=== PATIENT | female | born 1945 | race Caucasian/White ===

== ENCOUNTER 2023-04-17 09:58 | Outpatient (RCR) | payer MEDICARE, OTHER, SELFPAY | END 2023-04-17 23:59 | disposition home or self-care (01) | LOC: RPT 09:58 | PROVIDERS: ATTENDING PHYSICIAN Physical Medicine & Rehabilitation; FAMILY PHYSICIAN Family Medicine | DX: M47.816 Spondylosis without myelopathy or radiculopathy, lumbar region (principal); M41.50 Other secondary scoliosis, site unspecified; R26.89 Other abnormalities of gait and mobility; Z73.6 Limitation of activities due to disability | CPT/HCPCS: 97010; 97110; 97162 ==

== ENCOUNTER 2023-05-06 09:07 | Outpatient (RCR) | payer MEDICARE, OTHER, SELFPAY | END 2023-05-20 09:25 | disposition home or self-care (01) | LOC: RPT 09:07 | PROVIDERS: ATTENDING PHYSICIAN Physical Medicine & Rehabilitation; FAMILY PHYSICIAN Family Medicine | DX: M47.816 Spondylosis without myelopathy or radiculopathy, lumbar region (principal); M41.50 Other secondary scoliosis, site unspecified; Z73.6 Limitation of activities due to disability; R26.89 Other abnormalities of gait and mobility | CPT/HCPCS: 97010; 97110 ==

== ENCOUNTER 2023-05-16 14:55 | Inpatient (IN) | payer MEDICARE, OTHER, SELFPAY ==
[2023-05-16] VITALS (13 sets, daily range): BP systolic 135–193; BP diastolic 78–123; BMI 23.3; BMI 24.8
[2023-05-16 12:24] LABS: % Basophils 1.4 % (0-2); % Eosinophils 1.2 % (0-6); % Immature Granulocytes 0.2 % (0-0.5); % Lymphocytes 17.7 % (20.5-51.1); % Monocytes 5.4 % (1.7-9.3); % Neutrophils 74.1 % (42.2-75.2); Absolute Basophils 0.1 10^3/uL (0-0.2); Absolute Eosinophils 0.1 10^3/uL (0-0.7); Absolute Monocytes 0.3 10^3/uL (0.1-0.6); Absolute Neutrophils 4.4 10^3/uL (1.4-6.5); Hematocrit 47.1 % (37.0-47.0); Hemoglobin 15.2 g/dL (12.0-16.0); Mean Corp Hgb Conc. 32.3 g/dL (33.0-37.0); Mean Corpuscular Hgb 27.5 pg (27.0-31.0); Mean Corpuscular Volume 85.3 fL (81.0-99.0); Mean Platelet Volume 8.7 fL (7.4-10.4); Nucleated Red Blood Cells % 0 %; Platelet Count 405 10^3/uL (130-400); Red Blood Cell Count 5.52 10^6/uL (4.20-5.40); Red Cell Dist. Width 14.1 % (11.5-14.5); White Blood Cell Count 5.9 10^3/uL (4.8-10.8)
[2023-05-16 12:50] LABS: ALT (SGPT) 13 U/L (0-35); AST (SGOT) 24 U/L (14-36); Albumin 4.6 g/dl (3.5-5.0); Alkaline Phosphatase 121 U/L (38-126); Blood Urea Nitrogen 13 mg/dl (7-17); Calcium 9.7 mg/dl (8.4-10.2); Carbon Dioxide 22 mmol/L (22-30); Chloride 107 mmol/L (98-107); Estimated Creatinine Clearance 56 ml/min; Glucose 97 mg/dl (70-99); Potassium 3.9 mmol/L (3.5-5.1); Sodium 137 mmol/L (135-145); Total Bilirubin 1.1 mg/dl (0.2-1.3); Total Protein 7.4 g/dl (6.3-8.2); eGFR > 60.00
--- NOTE | 2023-05-16 12:51 | ED.CVA ---
History of Present Illness
General
Chief Complaint: CVA/TIA Symptoms
Source: patient and spouse
Exam Limitations: none
Time Seen by Provider: 05/16/23 12:35
Nursing documentation reviewed up to this point in time: agreed with
Onset of Stroke Symptoms
Onset of symptoms known: Yes
Date of onset of symptoms: 05/15/23
Time of onset of symptoms: 22:00
Time pt last seen normal is known: No
Travel History
Have you had any contact with someone who has COVID-19?: No
Do you have any symptoms of coronavirus? Fever > 100 degrees, chills, cough, shortness of breath, sore throat, loss of taste or smell, muscle aches, or headache?: No
History of Present Illness
History of Present Illness:
77-year-old female presents emergency department complaining of right sided blurry vision and word finding difficulty at 10 PM last night. Lasted about an hour, and has dissipated. She denies any complaints at this time. She states she was dizzy,
lightheaded.
Past History
Past History
ED Past Medical History: Other (Diverticulosis/diverticulitis )
ED Past Surgical History: None
Social History
Tobacco: Non-smoker
Alcohol: None
Personal:
Living: with family
Review of Systems
Review of Systems
Allergies reviewed?: Yes
All Other Systems: Not applicable
Constitutional: Reports no symptoms
EENT: Reports no symptoms
Respiratory: Reports no symptoms
Cardiac: Reports no symptoms
ABD/GI: Reports no symptoms
: Reports no symptoms
Musculoskeletal: Reports no symptoms
Skin: Reports no symptoms
Neurological: Reports dizzy
Endocrine: Reports no symptoms
Hematologic/Lymphatic: Reports no symptoms
Psychiatric: Reports no symptoms
Phy Exam
Physical Exam
Physical Exam:
Physical Exam
General: no apparent distress, not acutely ill
Neck: supple. no meningeal signs. normal posterior pharynx
Heart: s1/s2 regular rate and rhythm, no murmur. equal radial
pulses.
HEENT: Pupils equal round reactive to light, EOMI
Lungs: no acute respiratory distress. clear bilaterally
Abdomen: normal bowel sounds. not tender. no CVAT
Neuro: alert and oriented. no focal neurological deficits cranial nerves II through XII intact
Skin: no rash
Psychiatric: well kept. interactive and cooperative
Extremities: no edema. no calf tenderness. negative homans. good distal pulses
Scores
NIH Stroke Score
Level of Consciousness: 0 - Alert
LOC Questions: 0-Answers both correctly
LOC Commands: 0-Performs both correctly
Best Horizontal Gaze: 0-Normal
Visual Escalera: 0=Normal, no visual loss
Facial Palsy: 0=Normal, symmetrical
Motor - Right Arm: 0=No drift 10 seconds
Motor - Left Arm: 0=No drift 10 seconds
Motor - Right Le-No drift 5 seconds
Motor - Left Le-No drift 5 seconds
Limb Ataxia: 0-Absent
Sensation: 0-Normal
Best Language: 0-No aphasia
Dysarthria: 0-Normal
Extinction and Inattention: 0-No abnormality
Total Score:: 0
Course
Orders/Labs/Results
Orders:
Orders
05/16/23 12:12
Electrocardiogram (*1) Urgent
Reason for Study: Chest Pain
Cardiac Monitoring- Treatment ONCE
EKG- Treatment ONCE
IV Insert/Care/Rem.- Treatment PRN
O2 Therapy [RESP] Urgent
Titrate/Wean O2 to maintain O2 sat greater than (%): 90
Special Instructions: Maintain sats >/=90%
Pulse Ox/spot Check [RESP] Urgent
Quantity: 1
Special Instructions: ON ROOM AIR
05/16/23 12:13
Cardiovascular Evaluation Urgent
Complete Blood Count/With Diff Urgent
Comprehensive Metabolic Panel Urgent
Glycohemoglobin (HgbA1c) Urgent
Troponin I Urgent
05/16/23 12:19
Vitamin B12 Urgent
Comment: ADD ON
Vitamin D, 25-Oh Urgent
05/16/23 12:47
CT Head W/o Iv Contrast Urgent
Comment:
Reason For Exam: right sided blurry vision, word finding difficulty
05/16/23 12:49
IV Insert/Care/Rem.- Treatment PRN
05/16/23 14:15
NEUROLOGY CONSULT Routine
Consulting Provider: Anupama Navas
Was physician already notified: Yes
05/16/23 14:27
Add On- LAB Routine
Tests Added?: lipid panel, HgbA1C, B12 level, OH vit D level
05/16/23 14:28
Admit/Transfer Patient As Directed
Co-Sign Provider:
Level of Care: Inpatient admission
Assign to:: Telemetry
Physician / Group: Nika/hospitalist
Diagnosis: R eye blurriness, word finding difficulty
Reason for Telemetry: CVA/TIA
Date to Stop Telemetry: 05/19/23
Time to Stop Telemetry: 11:00
Reason for Hospitalization: R eye blurriness, word finding difficulty
Expected length of stay greater than two midnights?: Yes
ELOS- Estimated Length of Stay in days: 2
I certify the patient meets the requirements for IP care: Yes
05/16/23 14:29
Code Status As Directed
Resuscitation Status: Full Code
05/16/23 Dinner
Regular
At Your Request: Full Participation
05/16/23 17:39
Acetaminophen [Tylenol/Feverall] 650 mg RECTAL Q4HPRN PRN
Acetaminophen [Tylenol] 650 mg PO Q4HPRN PRN
Aspirin Chewable [Low Strength Aspirin] 81 mg PO DAILY
05/16/23 17:39
Case Management Consult ONCE
Case Management Consult: Discharge Planning
Comment: stroke/tia
DIETARY CONSULT Routine
Reason for Consult: stroke/TIA
Skin Diver Urgent
MR Brain Without Contrast Routine
Comment:
Reason For Exam: stroke/TIA
Recent pill cam endoscopy?: No
Activity As Directed
Activity Level: As Tolerated
NIH Stroke Scale As Directed
Directions: Per protocol
Comment: every shift and with any change in condition or mental status
Neurological Checks As Directed
Frequency: q4h
Additional Instructions:: q4h x 24h upon admission to the floor, then qshift & with any change in condition
and mental status
Patient Education As Directed
Type: Stroke education packet
Comment: provide to patient and family
Pneumatic Compression Sleeves As Directed
Type: Knee high
Swallow Screening CVA/TIA ONLY As Directed
Comment: NPO until swallowing screening completed
If patient FAILS swallow screening:: NPO, Speech Therapy consult, Aspiration Precautions
If patient PASSES swallow screening, diet:: Regular
Above diet order entered?: Yes- passed screening
Vital Signs As Directed
Frequency: Per unit guidelines
Ot Eval And Treat Routine
Pt Eval And Treat Routine
Activity Level: As Tolerated
Speech Therapy Eval & Treat Routine
DX Deep Vein Thrombosis Video Routine
05/17/23 06:00
Cardiovascular Evaluation IN AM
05/19/23 11:00
DC Protocol for Telemetry ONCE
Abnormal Lab Results
05/16/23 05/16/23
12:13 12:19
RBC 5.52 H 10^6/uL
(4.20-5.40)
Hct 47.1 H %
(37.0-47.0)
MCHC 32.3 L g/dL
(33.0-37.0)
Plt Count 405 H 10^3/uL
(130-400)
Absolute Lymphs (auto) 1.0 L 10^3/uL
(1.2-3.4)
Lymphocytes % 17.7 L %
(20.5-51.1)
Total Cholesterol 259 H mg/dl
(50-199)
Vitamin B12 227 L pg/ml
(239-931)
Vitamin D 25-Hydroxy 17.7 L ng/mL
(30-80)
05/16/23 12:13
05/16/23 12:13
Vital Signs
Initial and Last Documented VS:
Initial Vital Signs
Temp Pulse Resp BP Pulse Ox
98.2 F 91 16 193/123 100
05/16/23 11:48 05/16/23 11:48 05/16/23 11:48 05/16/23 11:48 05/16/23 11:48
Last Documented Vital Signs
Temp Pulse Resp BP Pulse Ox
98.1 F 88 14 146/78 97
05/16/23 19:08 05/16/23 19:08 05/16/23 19:08 05/16/23 19:08 05/16/23 19:08
MDM/Problems Addressed
Differential Diagnosis Includes:
CVA, intracranial hemorrhage
MDM/Problems Addressed:
77-year-old female with acute CVA, symptoms over 24 hours old and resolved. No indication for tPA or IAT. Admit to hospitalist.
Chronic conditions affecting care: Other (Raynaud's)
*Radiology
Radiology exam reviewed: radiology read reviewed (ct head shows 2 subcentimeter low-density area in left frontal white matter)
*Pulse Oximetry
Patient hypoxic: no
*EKG
Interpreted by ED Provider?: Yes
EKG Intrepretation Date: 05/16/23
EKG Intrepretation Time: 12:19
Interpretation: normal
Comparison EKG: no changes
Heart Rate: 73
Rate: normal
Rhythm: sinus
[place]: normal axis
Interval: normal interval
QRS Pattern: normal QRS
Ischemia: no ischemia
*Quality Control Tester Interpretation
Rate: normal
Interpretation: normal
Heart Rate: 75
Rhythm: sinus
*Critical Care Note
Total Time (30-74mins, 75-104mins- exclusive of procedures): Not Applicable
Data Reviewed
Prescriptions/Medications Considered But Not Given:
TNK not indicated
Patient Management
Social determinants of health affecting care: Living situation
Discussion with other providers: Hospitalist and Regulator Assembler (Neurology)
Escalation/DeEscalation of care consider admission/obs:
Admit indicated
ED Attending Note
-
Portions of this chart may have been created with voice recognition software.� Occasional wrong word or��sound alike� substitutions may have occurred due to the inherent limitations of voice recognition software.
Discharge Plan
Departure
Patient Disposition: Admit
Date of Disposition: 05/16/23
Time of Disposition: 14:05
Admit to: Telemetry
Presentation/result/management discussed w/ accepting MD/DO: Hospitalist
Patient with high blood pressure during this ER visit?: Yes
Condition: Good
Discharge Problem:
Acute cerebrovascular accident (CVA)
Interventions
Interventions:
*Risk Screen - Suicide Last Done: 05/16/23 11:51
*General Assessment Last Done: 05/16/23 12:55
*Neglect/Abuse Screening Last Done: 05/16/23 11:51
ED- Fall Risk Assessment Last Done: 05/16/23 12:39
*ED COVID-19 Vaccine History Last Done: 05/16/23 11:51
*Nursing Disposition Last Done: 05/16/23 17:55
ED- Pulmonary Assessment Last Done: 05/16/23 12:39
ED- Neurological Assessment Last Done: 05/16/23 12:40
ED- Cardiac Assessment Last Done: 05/16/23 12:39
ED Swallowing Screen Last Done: 05/16/23 12:11
Discharge Date and Time
Discharge Date/Time: 05/16/23 17:55
[2023-05-16 12:57] LABS: Troponin I < 0.012 ng/ml
--- NOTE | 2023-05-16 14:12 | HPS.HSE ---
Family Physician
-
Family Physician: Morgan Luu
Chief Complaint
-
R eye blurry vision, word finding difficulty
History of Present Illness
HPI: 77-year-old female PMH Diverticulosis, R breast ca s/p mastectomy, p/w right eye blurry vision and word finding difficulty that started at 10 PM the night prior and lasted for about an hour. She has no complaint currently, except for mild
headache.
She denies to N/V, fever/chills, CP/SOB, weakness/paresthesia.
Her CT head obtained in the ER noted a 2 cm low-density area in the left frontal white matter.
Medical History
Past Medical History
Past Medical History: Reports Other
Additional Past Medical History:
Diverticulosis
R breast ca s/p mastectomy
Past Surgical History: Reports Other
Additional Past Surgical History:
R breast ca s/p mastectomy
BL hip replacement
R knee replacement
Social History
Tobacco: Non-smoker
Alcohol: Occasional
Personal:
Living: With Family
Family History
Family History: Not pertinent
Allergies / Home Medications
Allergies reflects when Allergies were last updated in [employer].
Home Medications with original date entered in [employer]
Allergy/Medication List:
Allergies
Allergy/AdvReac Type Severity Reaction Status Date / Time
No Known Allergies Allergy Verified 05/16/23 11:51
Home Medications
cholecalciferol (vitamin D3) 25 mcg (1,000 unit) tablet (Vitamin D3) 25 mcg PO DAILY 05/16/23
cyanocobalamin (vitamin B-12) 1,000 mcg tablet 1,000 mcg PO DAILY 05/16/23
potassium 99 mg tablet 99 mg PO DAILY 05/16/23
Review of Systems
-
Neurological: Reports See HPI and Headache; Denies Weakness or Numbness
Physical Exam
Vital Signs
Vital Signs
Temp Pulse Resp BP Pulse Ox
36.8 C 71 19 154/85 99
05/16/23 11:48 05/16/23 14:00 05/16/23 14:00 05/16/23 14:00 05/16/23 14:00
Physical Exam
General: Well Developed, Well Nourished, No Apparent Distress, Comfortable and Conversant; No Slurred Speech
HEENT: NormoCephalic, Moist mucous membranes, Atraumatic, Nose Appears Normal and Ears Appear Normal
Respiratory: Clear and Non Labored Respirations; No Accessory Resp Muscle Use
Cardiac: S1/S2 and Regular Rhythm; No Murmur or Rub
GI: Soft, Non Tender, Non Distended and Normal Bowel Sounds; No Organomegaly
Rectal: Deferred by Provider
Musculoskeletal: No Clubbing, No Cyanosis and No Edema
Skin: No Rash
Neuro: Awake, Alert, Oriented, No Motor Deficits, Nonfocal/grossly intact and No Sensory Deficits; No Slurred Speech or Facial Droop
Psych: Calm and Intact Judgment/Insight
Laboratory Results
-
05/16/23 12:13
05/16/23 12:13
Laboratory Results
Total Bilirubin 1.1 mg/dl (0.2-1.3) 05/16/23 12:13
AST 24 U/L (14-36) 05/16/23 12:13
ALT 13 U/L (0-35) 05/16/23 12:13
Alkaline Phosphatase 121 U/L (38-126) 05/16/23 12:13
Troponin I < 0.012 ng/ml 05/16/23 12:13
Data Reviewed
-
CT Scan: Report Reviewed by me, Discussed with Patient and Discussed with Family
Lab Data: Labs Reviewed by me
Impression/Plan
-
HPI: 77-year-old female PMH Diverticulosis, R breast ca s/p mastectomy, p/w right eye blurry vision and word finding difficulty that started at 10 PM the night prior and lasted for about an hour. She has no complaint currently, except for mild
headache.
She denies to N/V, fever/chills, CP/SOB, weakness/paresthesia.
Her CT head obtained in the ER noted a 2 cm low-density area in the left frontal white matter.
A/P:
# right sided blurry vision and word finding difficulty, resolved. Admit for TIA/stroke work up
CT head noted 2 cm low-density area in the left frontal white matter.
Check MRI brain
Check lipid panel, A1C
Start ASA, defer Plavix to Neuro
Neuro CS
# ?vit B12 deficiency
# ? vit D deficiency
check B12 and Oh vit D level
She is on these supplements at home
# distant history of R breast ca s/p mastectomy
# Diverticulosis, R breast ca s/p mastectomy
DVT ppx: SCD
FC
--- NOTE | 2023-05-16 14:24 | PHANOTE ---
medrec note patient explain that her md was calling in today 05/16/23 vitamin d2 50,000iu weekly but patient has not started this yet or picked it up
[2023-05-16 14:54] LABS: HDL Cholesterol 96 mg/dl; LDL Cholesterol, Calculated 134 mg/dl; Total Cholesterol 259 mg/dl (50-199); Triglyceride 149 mg/dl (10-149); Very Low Density Lipoprotein 29 mg/dl (0-30)
[2023-05-16 15:10] LABS: Vitamin D, 25-OH*** 17.7 ng/mL (30-80)
[2023-05-16 15:43] LABS: Vitamin B12 227 pg/ml (239-931)
--- NOTE | 2023-05-16 16:33 | CON.NEURO ---
Consultation
Order
Date of Consultation: 05/16/23
Reason for Consult: stroke
HPI:The patient presents with a chief complaint of sudden difficulty hearing, understanding, and finding words a couple of days ago, accompanied by poor vision in the right eye and a crooked and dark image on the laptop screen last night. The
patient also reports feeling weak and dizzy in the morning. The patient is concerned about the possibility of a stroke or dementia.
The patient has a history of a mild headache on the left side for the past couple of days. The patient denies chest pain, heart racing, palpitations, belly pain, diarrhea, constipation, tingling, numbness in the feet, weakness on one side or sensory
deficits.
ER VS: 193/123, 91, afebrile
EKG: NSR
Labs: Potassium�5.52, platelets�405, normal WBCs, LDL�134, total cholesterol�259, vitamin B12�227, vit D 17.7
CT head-2 cm low-density area in the left frontal white matter
PMH: Breast cancer, diverticulosis Vitamin D, vitamin B-12 deficiency, OA
PSH: BL cataract surgery; Bilateral mastectomy; BL HIMA, R TKA,
SH: , works for the [employer]; non-smoker, social alcohol use
FH: mother-dementia
All:NKDA
ROS:Constitutional: Negative. Negative for chills, fever and unexpected weight change.
HENT: Negative for ear pain, hearing loss, tinnitus and trouble swallowing.
Eyes: Negative. Negative for photophobia, pain and visual disturbance.
Respiratory: Negative for cough, choking and shortness of breath.
Cardiovascular: Negative for chest pain, palpitations and leg swelling.
Gastrointestinal: Negative for abdominal pain and vomiting.
Endocrine: Negative. Negative for cold intolerance.
Genitourinary: Negative for dysuria, flank pain and urgency.
Musculoskeletal: positive for leg cramps
Skin: Negative for rash.
Allergic/Immunologic: Negative. Negative for immunocompromised state.
Neurological: Negative for dizziness, tremors, seizures, speech difficulty, numbness and headaches.
Psychiatric/Behavioral: Negative for behavioral problems, confusion and hallucinations.
General: Well developed. In no acute distress.
Cardio: Regular rate and rhythm without murmur. Extremities are without cyanosis or edema.
Neuro:
Mental Status: Alert, oriented to person, place, and date. Poor attention and recall. Good fund of knowledge. Follows complex requests across the midline. Comprehension, naming, and repetition intact.
Cranial Nerves: Pupils are equally round, surgical. EOMs full. Visual herrera full to confrontation. No ptosis. No nystagmus. V1-V3 intact to light touch and pinprick bilaterally, symmetric. Face symmetric. Normal hearing AU. The palate
elevated well. SCMs and traps 5/5. Tongue midline. No dysarthria.
Motor: Normal bulk and tone. No pronator or arm drift. Strength 5/5 throughout. No clonus.
Reflexes: neg grasp BL
Sensory: Normal LT
Coordination: No dysmetria or tremor.
Gait: deferred
Assessment and Plan:
I. Vascular encephalopathy
II. Probable left frontal stroke
III. DLP
IV. vitamin B-12 deficient
-Continue Telemetry monitoring.
-Aspiration precautions.
-Cautious lowering of BP by approximately 15 % during the first 24 hours is SBP >220 mmHg or diastolic blood pressure >120 mmHg;
-Restart antihypertensive medications during if BP>140/90 mmHg who are neurologically stable in 24 to 48 hours after stroke onset;
-TTE with bubble studies
-Start ASA 81 mg QD indefinitely.
-Lipitor 40 mg QHS.
-Please check HbA1C
-PT.
-DVT prophylaxis.
-The case was discussed with patient's spouse presented with
I personally reviewed all radiology and labs along with past medical records pertinent to current medical problems. Total time spent in patient care is 60 minutes.
Thank you for allowing us to participate in the care of this patient. We will continue to follow. Please do not hesitate to contact us with any questions or concerns.
Subjective/Objective
Subjective Data
Date of Service: May 16, 2023
Objective Data
Vital Signs
Temp Pulse Resp BP Pulse Ox
36.8 C 76 18 172/93 99
05/16/23 11:48 05/16/23 16:00 05/16/23 16:00 05/16/23 15:30 05/16/23 15:45
Lab Results
05/16/23 12:13
05/16/23 12:13
Sodium 137 mmol/L (135-145) 05/16/23 12:13
Potassium 3.9 mmol/L (3.5-5.1) 05/16/23 12:13
BUN 13 mg/dl (7-17) 05/16/23 12:13
Glucose 97 mg/dl (70-99) 05/16/23 12:13
Calcium 9.7 mg/dl (8.4-10.2) 05/16/23 12:13
LDL Cholesterol, Calc 134 mg/dl 05/16/23 12:13
Vitamin B12 227 pg/ml (239-931) L 05/16/23 12:19
Patient Allergies
No Known Allergies Allergy (Verified 05/16/23 11:51)
Medications
-
Home Medications
Medication Instructions Recorded
cholecalciferol (vitamin D3) 25 25 mcg PO DAILY 05/16/23
mcg (1,000 unit) tablet (Vitamin
D3)
cyanocobalamin (vitamin B-12) 1,000 mcg PO DAILY 05/16/23
1,000 mcg tablet
potassium 99 mg tablet 99 mg PO DAILY 05/16/23
Vital Signs and Labs
-
Vital Signs and Labs:
Vital Signs
Temp Pulse Resp BP Pulse Ox
36.6 C 79 18 161/100 97
05/16/23 17:49 05/16/23 17:49 05/16/23 17:49 05/16/23 17:49 05/16/23 17:49
Lab Results
05/16/23 12:13
05/16/23 12:13
Sodium 137 mmol/L (135-145) 05/16/23 12:13
Potassium 3.9 mmol/L (3.5-5.1) 05/16/23 12:13
BUN 13 mg/dl (7-17) 05/16/23 12:13
Glucose 97 mg/dl (70-99) 05/16/23 12:13
Calcium 9.7 mg/dl (8.4-10.2) 05/16/23 12:13
LDL Cholesterol, Calc 134 mg/dl 05/16/23 12:13
Vitamin B12 227 pg/ml (239-931) L 05/16/23 12:19
Home Medications
-
Home Medications
cholecalciferol (vitamin D3) 25 mcg (1,000 unit) tablet (Vitamin D3) 25 mcg PO DAILY 05/16/23
cyanocobalamin (vitamin B-12) 1,000 mcg tablet 1,000 mcg PO DAILY 05/16/23
potassium 99 mg tablet 99 mg PO DAILY 05/16/23
Medications
-
Medications:
Generic Name Dose Route Start Last Admin
Trade Name Freq PRN Reason Stop Dose Admin
Acetaminophen 650 mg 05/16/23 17:39
Acetaminophen 650 Mg Rectal Suppository RECTAL 06/13/23 17:38
Q4HPRN PRN
WALDRON, mild pain, or temp >100.4F
Acetaminophen 650 mg 05/16/23 17:39
Acetaminophen 325 Mg Tablet PO 06/13/23 17:38
Q4HPRN PRN
WALDRON, mild pain, or temp >100.4F
Aspirin 81 mg 05/16/23 17:00 05/16/23 17:49
Aspirin 81 Mg Chewable Tablet PO 06/13/23 16:59 81 mg
DAILY TITI Administration
Atorvastatin Calcium 40 mg 05/16/23 18:00 05/16/23 17:49
Atorvastatin (Lipitor) 40 Mg Tablet PO 06/13/23 17:59 40 mg
QPM TITI Administration
Sodium Chloride 0 flush 05/16/23 18:00
Sodium Chloride 0.9% (Flush) Syringe IV 06/13/23 17:59
PER PROTOCOL TITI
[2023-05-16] MEDS: LIPITOR 40 MG PO (17:49)
[2023-05-16] MEDS: LOW STRENGTH ASPIRIN 81 MG PO (17:49)
[2023-05-16] MEDS: REFRESH EYE DROPS (PF) 1 DROPS OPHTH (22:17)
[2023-05-17] VITALS (7 sets, daily range): BP systolic 136–164; BP diastolic 76–93; PULSE 82; O2SAT 98
[2023-05-17 07:38] LABS: HDL Cholesterol 79 mg/dl; LDL Cholesterol, Calculated 114 mg/dl; Total Cholesterol 211 mg/dl (50-199); Triglyceride 93 mg/dl (10-149); Very Low Density Lipoprotein 18 mg/dl (0-30)
[2023-05-17 08:53] LABS: Glycohemoglobin (HgbA1c) 5.7 % (4.0-5.6)
[2023-05-17] MEDS: LOW STRENGTH ASPIRIN 81 MG PO (09:27)
[2023-05-17] MEDS: VITAMIN D3 (cholecalciferol) 25 MCG PO (09:33)
[2023-05-17] MEDS: VITAMIN B-12 1000 MCG PO (09:33)
--- NOTE | 2023-05-17 09:33 | PTOTSP ---
ST Evaluation
Oropharyngeal function appears intact at the bedside. Self reported word finding difficulty/anomic episode x2 recently of common word. Did not exhibit word finding difficulty in conversation during this eval.
Pt received awake/alert oriented x4 at the bedside. She was sitting upright in bed reading menu. Reports feeling anxious re: results of MRI brain, awaiting physician to stop by at bedside. Self fed trials of puree, regular solids and thin liquids.
Demo adequate oral access/containment, functional mastication and bolus was orally cleared. Thin liquids by straw sip swallow appears prompt. No overt s/sx of aspiration observed.
Recommend
1. Continue regular solids/thin liquids
2. Standard aspiration precautions
3. Meds with sips of water
4. BOILERMAKER WELDER following; language assessment
--- NOTE | 2023-05-17 10:29 | W.PN.NEURO.1 ---
Today's Communication / Plan
-
.
Subjective/Objective
Subjective Data
Date of Service: May 17, 2023
24h events: Ms. Suarez reports no complaints. Her blood pressure has significantly improved.
Brain MRI showed an acute left MCA and right pontine infarcts, L frontal hypodensity without edema as well as the left P2 occlusion.
Tele-NSR
PMH: Breast cancer, diverticulosis Vitamin D, vitamin B-12 deficiency, OA
PSH: BL cataract surgery; bilateral mastectomy; BL HIMA, R TKA,
SH: , works for the [employer]; non-smoker, social alcohol use
FH: mother-dementia
All: NKDA
ROS:Constitutional: Negative. Negative for chills, fever and unexpected weight change.
HENT: Negative for ear pain, hearing loss, tinnitus and trouble swallowing.
Eyes: Negative. Negative for photophobia, pain and visual disturbance.
Respiratory: Negative for cough, choking and shortness of breath.
Cardiovascular: Negative for chest pain, palpitations and leg swelling.
Gastrointestinal: Negative for abdominal pain and vomiting.
Endocrine: Negative. Negative for cold intolerance.
Genitourinary: Negative for dysuria, flank pain and urgency.
Musculoskeletal: positive for leg cramps
Skin: Negative for rash.
Allergic/Immunologic: Negative. Negative for immunocompromised state.
Neurological: Negative for dizziness, tremors, seizures, speech difficulty, numbness and headaches.
Psychiatric/Behavioral: Negative for behavioral problems, confusion and hallucinations.
�
�
General: Well developed. In no acute distress.
Cardio: Regular rate and rhythm without murmur. Extremities are without cyanosis or edema.
Neuro:
Mental Status: Alert, oriented to person, place, and date.� Poor attention and recall.� Good fund of knowledge. Follows complex requests across the midline.� Comprehension, naming, and repetition intact.�
Cranial Nerves: Pupils are equally round, surgical.� EOMs full.� Visual herrera full to confrontation.� No ptosis.� No nystagmus.� V1-V3 intact to light touch and pinprick bilaterally, symmetric.� Face symmetric.� Normal hearing AU.� The palate
elevated well.� SCMs and traps 5/5.� Tongue midline.� No dysarthria.
Motor:� � � � Normal bulk and tone.� No pronator or arm drift.� Strength 5/5 throughout. No clonus.
Coordination: No dysmetria or tremor.�
Gait: � � � � � deferred
Assessment and Plan:
�
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 L P2 occlusion. Likely etiology�cardioembolism
II.� Left frontal hypodensity�likely microvascular. Potential diagnoses includes low-grade glioma
III. Hypertensive emergency
-Continue Telemetry monitoring.
-TTE with bubble studies
-Start ASA 81 mg QD indefinitely.
-Plavix 75 mg once a day for 21 days
-Cardiology consult�LU�loop monitoring if the TTE with bubble studies is unremarkable
-Lipitor 40 mg QHS.
-Please check HbA1C
-Brain MRI with gadolinium
-PT.
-DVT prophylaxis.
�
I personally reviewed all radiology and labs along with past medical records pertinent to current medical problems. Total time spent in patient care is 35 minutes.
�
Thank you for allowing us to participate in the care of this patient. We will continue to follow. Please do not hesitate to contact us with any questions or concerns
Objective Data
Vital Signs
Temp Pulse Resp BP Pulse Ox
36.6 C 65 16 136/87 98
05/17/23 07:35 05/17/23 07:35 05/17/23 07:35 05/17/23 07:35 05/17/23 07:35
Lab Results
05/16/23 12:13
05/16/23 12:13
Sodium 137 mmol/L (135-145) 05/16/23 12:13
Potassium 3.9 mmol/L (3.5-5.1) 05/16/23 12:13
BUN 13 mg/dl (7-17) 05/16/23 12:13
Glucose 97 mg/dl (70-99) 05/16/23 12:13
Calcium 9.7 mg/dl (8.4-10.2) 05/16/23 12:13
LDL Cholesterol, Calc 114 mg/dl 05/17/23 07:07
Vitamin B12 227 pg/ml (239-931) L 05/16/23 12:19
Patient Allergies
No Known Allergies Allergy (Verified 05/16/23 11:51)
--- NOTE | 2023-05-17 11:04 | CON.CAR ---
Addendum entered and electronically signed by Jarred Vogel MD 05/17/23 12:22:
77 yo female with PMH of breast cancer admitted with acute stroke, suspected embolic. No CP, palps, SOB. Exam with RRR, no murmurs, no edema. EKG and tele: NSR.
Neurology recs reviewed: ASA, plavix, statin. Eval for LU/ILR.
TTE with bubble today. If unremarkable, and no A fib on tele, will proceed with LU/ILR on Saturday.
Original Note:
Consultation
Consultation Request
Date/Time Consultation Requested: 05/17/23 10:45
Date/Time Consultation Performed: 05/17/23 11:00
Requesting Provider: Dr. Navas
Performing Provider: JUNE Diaz for Dr. Vogel
Reason for Consultation: CVA
Medical History
-
Chief Complaint: Blurry vision and word finding
History of Present Illness:
Patient is a 77-year-old female with a past medical history of right-sided breast cancer status postmastectomy and diverticulosis who presented to the emergency department with a chief complaint of blurry vision in her right eye and word finding
difficulty the night prior to presentation. This lasted for approximately 1 hour and she presented with no complaints. She had a brain MRI and was found to have a 2.3 cm acute ischemic infarct in the left temporal lobe, a 3 mm acute ischemic
infarct in the right rosie, and suspected acute thrombotic occlusion of the P2 segment of the left posterior cerebral artery. Cardiology was consulted for consideration for LU/ILR placement.
Past Medical History
Past Medical History: Cancer (Breast S/P mastectomy [right])
Past Surgical History: Gynecological (Mastectomy) and Orthopedic
Social History
Tobacco: Non-Smoker
Drug: None
Personal:
Living: With Family
Employment: Retired
Family History
Family History: Reviewed & Not Pertinent
Allergies / Home Medications
Allergy/AdvReac Type Severity Reaction Status Date / Time
No Known Allergies Allergy Verified 05/16/23 11:51
Medication Instructions Recorded Confirmed Type
cholecalciferol (vitamin D3) 25 25 mcg PO DAILY Supplement 05/16/23 05/16/23 History
mcg (1,000 unit) tablet (Vitamin
D3)
cyanocobalamin (vitamin B-12) 1,000 mcg PO DAILY Supplement 05/16/23 05/16/23 History
1,000 mcg tablet
potassium 99 mg tablet 99 mg PO DAILY Supplement 05/16/23 05/16/23 History
Review of Systems
-
History Source: Patient
All other systems: Negative unless noted
EENT: No Symptoms
Respiratory: No Symptoms
Cardiac: No Symptoms
Abdomen/GI: No Symptoms
Physical Exam
Vital Signs
Temp Pulse Resp BP Pulse Ox
97.9 F 65 16 136/87 98
05/17/23 07:35 05/17/23 07:35 05/17/23 07:35 05/17/23 07:35 05/17/23 07:35
Lab Results
05/16/23 12:13
05/16/23 12:13
Troponin I < 0.012 ng/ml 05/16/23 12:13
Physical Exam
General: Well Developed, Well Nourished and No Apparent Distress
HEENT: Normocephalic, Anicteric and Moist Mucous Membranes
Respiratory: Clear and Non Labored Respirations
Cardiac: S1/S2 and Regular Rhythm; Negative Peripheral Edema
Breast: Deferred by me
GI: Soft, Non Tender, Non Distended and Normal Bowel Sounds
Rectal: Deferred by Provider
Genito-urinary: No Costovertebral Tender
Musculoskeletal: No Clubbing, No Cyanosis and No Edema
Skin: Warm and Dry
Neuro: AO x 3
Psych: Calm
Impression / Plan
-
CVA
-Symptoms resolved
-DAPT (clopidogrel and ASA) for 21 days with ASA indefinitely per Neuro
-LDL 114, high intensity statin initiated (atorvastatin 40mg)
-TTE with bubble today
-Consideration for LU/ILR, she already had breakfast
HTN, improving
-Spontaneously improved without medical therapy
Prediabetes, HgbA1c 5.7%
B12 deficiency
Vitamin D deficiency
Data Reviewed
-
EKG: Report Reviewed by me (Sinus rhythm, rate 73)
MRI: Report Reviewed by me (Brain: 2.3 cm ACUTE ISCHEMIC INFARCT in the posteromedial LEFT TEMPORAL LOBE. 3 mm ACUTE ISCHEMIC INFARCT in the RIGHT ROSIE. Suspected acute thrombotic occlusion of the P2 segment of the left posterior cerebral artery)
Labs: Labs Reviewed by me
Old Records: Reviewed (outpatient PCP note)
--- NOTE | 2023-05-17 12:16 | PTCARENOTE ---
Pt in Cardiac Services for Echo Bubble Study at 1140. Procedure completed per protocol with aseptic technique, left antecubital IV site utilized. IV site flushed easily pre and post procedure. Pt tolerated procedure well, no change in status, alert
and cooperative.
--- NOTE | 2023-05-17 12:31 | W.PN.HOSP.TC ---
Today's Communication/Plan
-
see A/P
Assessment / Plan
Assessment / Plan
HPI: 77-year-old female PMH Diverticulosis, R breast ca s/p mastectomy, p/w right eye blurry vision and word finding difficulty that started at 10 PM the night prior and lasted for about an hour. She has no complaint currently, except for mild
headache.
She denies to N/V, fever/chills, CP/SOB, weakness/paresthesia.
Her CT head obtained in the ER noted a 2 cm low-density area in the left frontal white matter.
A/P:
# right sided blurry vision and word finding difficulty, due to Acute left TURN SEWER/basilar artery infarcts.
[place] likely cardioembolic per Neuro
CT head noted 2 cm low-density area in the left frontal white matter.
MRI brain confirmed 2.3 cm ACUTE ISCHEMIC INFARCT in the posteromedial LEFT TEMPORAL LOBE. 3 mm ACUTE ISCHEMIC INFARCT in the RIGHT ROSIE.
LDL high at 114, started Lipitor 40 mg HS
A1C 5.7%
Check echo with bubble, if TTE with bubble studies is unremarkable, will proceed with LU/ILR on Saturday.
Cont ASA plavix
Neuro on board
# vit B12 deficiency
# vit D deficiency
B12 level and OH vit D level low
Cont supplements
# distant history of R breast ca s/p mastectomy
# Diverticulosis, R breast ca s/p mastectomy
DVT ppx: add Lovenox SQ
FC
DW RN
Anticipated Discharge: 24 - 48 hours
Subjective/Interval History
-
Date of Service: May 17, 2023
Objective Data
-
Vital Signs:
Vital Signs
Temp Pulse Resp BP Pulse Ox
36.9 C 77 16 148/92 98
05/17/23 11:29 05/17/23 11:29 05/17/23 11:29 05/17/23 11:29 05/17/23 11:29
I&O
05/16/23 05/17/23 05/18/23
06:59 06:59 06:59
Intake Total 480 / 480
Balance 480 / 480
Review of Systems
-
All other systems: Reviewed and negative
Physical Exam
-
General: Well Developed, Well Nourished, No Apparent Distress, Comfortable and Conversant; Negative Respiratory Distress or Slurred Speech
HEENT: Normocephalic, Atraumatic, Nose Appears Normal and Ears Appear Normal; Negative Oxygen
Respiratory: Clear to Auscultation and Non Labored Respirations; Negative Accessory Resp Muscle Use
Cardiac: Regular Rhythm and S1/S2
GI: Soft, Nontender, Nondistended and Normal Bowel Sounds
Skin: Warm and Dry
Neuro: Awake, Alert, Oriented, AO x 3, No Motor Deficits, Nonfocal/Grossly Intact and No Sensory Deficits; Negative Slurred Speech or Facial Droop
Psych: Calm and Intact Judgement/Insight
Data Reviewed
-
CT Scan: Report Reviewed by me
MRI: Report Reviewed by me
Labs: Labs Reviewed by me
[2023-05-17] MEDS: PLAVIX 75 MG PO (12:59)
[2023-05-17] MEDS: REFRESH EYE DROPS (PF) 1 DROPS OPHTH ×2 (13:00→19:07)
--- NOTE | 2023-05-17 17:10 | CM ---
CM following re: d/c planning
Chart reviewed
CM met with patient at bedside; IA completed
Pt states she resides in a 2SH with 1STE
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
Pt has no previous hx of VN/SNF however has the following DME to use if needed: a chair lift, w/c, & spc
Pt confirms prescription coverage and rx's [facility]
Pt PCP-Morgan Luu
Pt anticipates d/c home when stable
CM will continue to monitor patient progress and assist with any needs at d/c as indicated
PLAN; d/c home no needs anticipated
[2023-05-17] MEDS: LIPITOR 40 MG PO (18:11)
[2023-05-17] MEDS: LOVENOX 40 MG SC (19:07)
[2023-05-18 03:48] VITALS: BP 127/74
[2023-05-18 07:40] VITALS: BP 159/95
[2023-05-18] MEDS: VITAMIN B-12 1000 MCG PO (08:52)
[2023-05-18] MEDS: LOW STRENGTH ASPIRIN 81 MG PO (08:52)
[2023-05-18] MEDS: VITAMIN D3 (cholecalciferol) 25 MCG PO (08:52)
[2023-05-18] MEDS: PLAVIX 75 MG PO (08:52)
[2023-05-18] MEDS: REFRESH EYE DROPS (PF) 1 DROPS OPHTH (09:18)
--- NOTE | 2023-05-18 10:19 | W.PN.CD ---
Today's Communication / Plan
-
plan for LU and ILR Saturday if no A fib on tele
Impression / Plan
-
CVA
-DAPT (clopidogrel and ASA) for 21 days with ASA indefinitely per Neuro
-LDL 114, statin initiated (atorvastatin 40mg)
-TTE with bubble: normal
-monitor tele for A fib
-plan for LU and ILR Saturday if no A fib on tele
Elevated blood pressure
-variable here: contineu to trend
Prediabetes, HgbA1c 5.7%
B12 deficiency
Vitamin D deficiency
Physical Exam
Vital Signs/Labs
Vital Signs
Temp Pulse Resp BP Pulse Ox
97.8 F 79 18 159/95 99
05/18/23 07:40 05/18/23 07:40 05/18/23 07:40 05/18/23 07:40 05/18/23 07:40
05/17/23 05/18/23 05/19/23
06:59 06:59 06:59
Actual Weight 71.696 kg
05/16/23 12:13
05/16/23 12:13
Triglycerides 93 mg/dl (10-149) 05/17/23 07:07
LDL Cholesterol, Calc 114 mg/dl 05/17/23 07:07
VLDL Cholesterol, Calc 18 mg/dl (0-30) 05/17/23 07:07
HDL Cholesterol 79 mg/dl 05/17/23 07:07
LAB Results
05/16/23
12:13
Troponin I < 0.012
Physical Exam
Constitutional: No acute distress and Comfortable
EENT: Moist mucous membranes
Cardiovascular: Rhythm & rate is regular, Pedal edema is absent, JVD pressure is normal and Systolic murmur absent
Respiratory: Respiratory effort normal and Lungs clear to auscul.
GI: Distention absent
Neuro/Psych: AO x 3
Data Reviewed
-
Date of Service: May 18, 2023
EKG: Other (Tele: NSR)
Echo: Report Reviewed by me (per note)
Labs: Labs Reviewed by me
--- NOTE | 2023-05-18 11:16 | W.PN.HOSP.TC ---
Today's Communication/Plan
-
see A/P
Assessment / Plan
Assessment / Plan
HPI: 77-year-old female PMH Diverticulosis, R breast ca s/p mastectomy, p/w right eye blurry vision and word finding difficulty that started at 10 PM the night prior and lasted for about an hour. She has no complaint currently, except for mild
headache.
She denies to N/V, fever/chills, CP/SOB, weakness/paresthesia.
Her CT head obtained in the ER noted a 2 cm low-density area in the left frontal white matter.
A/P:
# right sided blurry vision and word finding difficulty, due to Acute left REIMBURSEMENT LIAISON/basilar artery infarcts. Neuro symptoms have resolved
[place] likely cardioembolic per Neuro
CT head noted 2 cm low-density area in the left frontal white matter.
MRI brain confirmed 2.3 cm ACUTE ISCHEMIC INFARCT in the posteromedial LEFT TEMPORAL LOBE. 3 mm ACUTE ISCHEMIC INFARCT in the RIGHT ROSIE.
LDL high at 114, started Lipitor 40 mg HS
A1C 5.7%
Echo unrevealing, LVEF 55-60%. Negative bubble study x2
Cardiology will plan LU and ILR Saturday
Cont ASA /plavix
Neuro on board
# vit B12 deficiency
# vit D deficiency
B12 level and OH vit D level low
Cont supplements
# distant history of R breast ca s/p mastectomy
# Diverticulosis, R breast ca s/p mastectomy
DVT ppx: add Lovenox SQ
FC
DW RN
Anticipated Discharge: 24 - 48 hours
Subjective/Interval History
-
Date of Service: May 18, 2023
Objective Data
-
Vital Signs:
Vital Signs
Temp Pulse Resp BP Pulse Ox
36.6 C 79 18 159/95 99
05/18/23 07:40 05/18/23 07:40 05/18/23 07:40 05/18/23 07:40 05/18/23 07:40
I&O
05/17/23 05/18/23 05/19/23
06:59 06:59 06:59
Intake Total 480 / 480 1500 / 1500
Balance 480 / 480 1500 / 1500
Review of Systems
-
All other systems: Reviewed and negative
Physical Exam
-
General: Well Developed, Well Nourished, No Apparent Distress, Comfortable and Conversant; Negative Respiratory Distress or Slurred Speech
HEENT: Normocephalic, Atraumatic, Nose Appears Normal, Ears Appear Normal and Other (L eye grittiness); Negative Oxygen
Respiratory: Clear to Auscultation and Non Labored Respirations; Negative Accessory Resp Muscle Use
Cardiac: Regular Rhythm and S1/S2
GI: Soft, Nontender, Nondistended and Normal Bowel Sounds
Skin: Warm and Dry
Neuro: Awake, Alert, Oriented, AO x 3, No Motor Deficits, Nonfocal/Grossly Intact and No Sensory Deficits; Negative Slurred Speech or Facial Droop
Psych: Calm and Intact Judgement/Insight
Data Reviewed
-
CT Scan: Report Reviewed by me
MRI: Report Reviewed by me
Labs: Labs Reviewed by me
[2023-05-18 11:25] VITALS: BP 155/90
--- NOTE | 2023-05-18 12:48 | W.PN.NEURO.1 ---
Today's Communication / Plan
-
.
Subjective/Objective
Subjective Data
Date of Service: May 18, 2023
24h events: Ms. Suarez reports no new symptoms.
Brain MRI with sita (05/17/2023) left MCA and right pontine infarcts, nonenhancing L frontal hypodensity.
HbA1C 5.7
TTE()�no evidence of cardioembolic source
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
PSH: BL cataract surgery; bilateral mastectomy; BL HIMA, R TKA,
SH: , works for the [employer]; non-smoker, social alcohol use
FH: mother-dementia
All: NKDA
ROS:Constitutional: Negative. Negative for chills, fever and unexpected weight change.
HENT: Negative for ear pain, hearing loss, tinnitus and trouble swallowing.
Eyes: Negative. Negative for photophobia, pain and visual disturbance.
Respiratory: Negative for cough, choking and shortness of breath.
Cardiovascular: Negative for chest pain, palpitations and leg swelling.
Gastrointestinal: Negative for abdominal pain and vomiting.
Endocrine: Negative. Negative for cold intolerance.
Genitourinary: Negative for dysuria, flank pain and urgency.
Musculoskeletal: positive for leg cramps
Skin: Negative for rash.
Allergic/Immunologic: Negative. Negative for immunocompromised state.
Neurological: Negative for dizziness, tremors, seizures, speech difficulty, numbness and headaches.
Psychiatric/Behavioral: Negative for behavioral problems, confusion and hallucinations.
�
�
General: Well developed. In no acute distress.
Cardio: Regular rate and rhythm without murmur. Extremities are without cyanosis or edema.
Neuro:
Mental Status: Alert, oriented to person, place, and date.� Impaired comprehension. Follow simple requests. No alexia or agraphia. �
Cranial Nerves: Pupils are equally round, surgical.� EOMs full.� Visual herrera full to confrontation.� No ptosis.� No nystagmus.� V1-V3 intact to light touch and pinprick bilaterally, symmetric.� Face symmetric.� Normal hearing AU.� The palate
elevated well.� SCMs and traps 5/5.� Tongue midline.� No dysarthria.
Motor:� � � � Normal bulk and tone.� No pronator or arm drift.� Strength 5/5 throughout. No clonus.
Coordination: No dysmetria or tremor.�
Gait: � � � � � deferred
Assessment and Plan:
�
�I.� Acute left VALVE GRINDER/basilar artery territory infarcts. L P2 occlusion. Likely etiology�cardioembolism
II.� Left frontal hypodensity�likely microvascular.� Potential diagnoses includes low-grade glioma
III.� Mild encephalopathy(vascular, neurodegenerative?)
-Continue Telemetry monitoring.
-Continue ASA 81 mg QD indefinitely.
-Plavix 75 mg once a day for 21 days
-plan for LU and ILR Saturday if no A fib on tele
-Lipitor 40 mg QHS.
-Outpatient neuropsychological evaluation
-Repeat brain MRI with sita in 4-6 weeks.
-DVT prophylaxis.
-Please recall neurology service if LU is abnormal
-Outpatient neurology follow-up in 2-3 weeks
�
I personally reviewed all radiology and labs along with past medical records pertinent to current medical problems. Total time spent in patient care is 35 minutes.
�
Objective Data
Vital Signs
Temp Pulse Resp BP Pulse Ox
36.6 C 81 18 155/90 99
05/18/23 11:25 05/18/23 11:25 05/18/23 11:25 05/18/23 11:25 05/18/23 11:25
Lab Results
05/16/23 12:13
05/16/23 12:13
Sodium 137 mmol/L (135-145) 05/16/23 12:13
Potassium 3.9 mmol/L (3.5-5.1) 05/16/23 12:13
BUN 13 mg/dl (7-17) 05/16/23 12:13
Glucose 97 mg/dl (70-99) 05/16/23 12:13
Calcium 9.7 mg/dl (8.4-10.2) 05/16/23 12:13
LDL Cholesterol, Calc 114 mg/dl 05/17/23 07:07
Vitamin B12 227 pg/ml (239-931) L 05/16/23 12:19
Patient Allergies
No Known Allergies Allergy (Verified 05/16/23 11:51)
--- NOTE | 2023-05-18 13:49 | CM ---
Patient seen bedside, reports no new concerns, patient anxious about MRI results. CM will continue to follow for discharge planning needs.
Plan; home no needs anticipated.
[2023-05-18 15:40] VITALS: BP 141/89
[2023-05-18] MEDS: LIPITOR 40 MG PO (17:36)
[2023-05-18] MEDS: LOVENOX 40 MG SC (17:36)
[2023-05-18 19:35] VITALS: BP 158/83
[2023-05-18 23:08] VITALS: BP 123/79
[2023-05-19 03:17] VITALS: BP 128/83
[2023-05-19 07:15] VITALS: BP 137/80
[2023-05-19 07:48] LABS: Hematocrit 41.2 % (37.0-47.0); Hemoglobin 13.2 g/dL (12.0-16.0); Mean Corpuscular Volume 84.4 fL (81.0-99.0); Mean Platelet Volume 9.6 fL (7.4-10.4); Platelet Count 299 10^3/uL (130-400); Red Blood Cell Count 4.88 10^6/uL (4.20-5.40); Red Cell Dist. Width 14.2 % (11.5-14.5)
[2023-05-19] MEDS: LOW STRENGTH ASPIRIN 81 MG PO (08:03)
[2023-05-19] MEDS: PLAVIX 75 MG PO (08:03)
[2023-05-19] MEDS: VITAMIN B-12 1000 MCG PO (08:03)
[2023-05-19] MEDS: VITAMIN D3 (cholecalciferol) 25 MCG PO (08:03)
[2023-05-19 09:00] LABS: Blood Urea Nitrogen 15 mg/dl (7-17); Calcium 9.6 mg/dl (8.4-10.2); Carbon Dioxide 23 mmol/L (22-30); Chloride 107 mmol/L (98-107); Estimated Creatinine Clearance 53 ml/min; Glucose 85 mg/dl (70-99); Potassium 4.5 mmol/L (3.5-5.1); Sodium 138 mmol/L (135-145); eGFR > 60.00
--- NOTE | 2023-05-19 10:53 | W.PN.CD ---
Today's Communication / Plan
-
plan for LU and ILR Saturday
Impression / Plan
-
CVA
-DAPT (clopidogrel and ASA) for 21 days with ASA indefinitely per Neuro
-LDL 114, statin initiated (atorvastatin 40mg)
-TTE with bubble: normal
-monitor tele for A fib: none so far
-plan for LU and ILR Saturday
Elevated blood pressure
-variable here: continue to trend
Prediabetes, HgbA1c 5.7%
B12 deficiency
Vitamin D deficiency
Physical Exam
Vital Signs/Labs
Vital Signs
Temp Pulse Resp BP Pulse Ox
97.8 F 66 16 137/80 100
05/19/23 07:15 05/19/23 07:15 05/19/23 07:15 05/19/23 07:15 05/19/23 07:15
05/19/23 06:36
05/19/23 06:36
Magnesium 2.0 mg/dl (1.6-2.3) 05/19/23 06:36
Triglycerides 93 mg/dl (10-149) 05/17/23 07:07
LDL Cholesterol, Calc 114 mg/dl 05/17/23 07:07
VLDL Cholesterol, Calc 18 mg/dl (0-30) 05/17/23 07:07
HDL Cholesterol 79 mg/dl 05/17/23 07:07
LAB Results
05/16/23
12:13
Troponin I < 0.012
Physical Exam
Constitutional: No acute distress and Comfortable
EENT: Moist mucous membranes
Cardiovascular: Rhythm & rate is regular, Pedal edema is absent, JVD pressure is normal and Systolic murmur absent
Respiratory: Respiratory effort normal, Lungs clear to auscul. and Wheeze Absent
GI: Soft and Distention absent
Neuro/Psych: AO x 3
Data Reviewed
-
Date of Service: May 19, 2023
EKG: Other (Tele: SR )
Labs: Labs Reviewed by me
[2023-05-19 11:00] VITALS: BP 144/92
--- NOTE | 2023-05-19 11:31 | W.PN.HOSP.TC ---
Today's Communication/Plan
-
see A/P
Assessment / Plan
Assessment / Plan
HPI: 77-year-old female PMH Diverticulosis, R breast ca s/p mastectomy, p/w right eye blurry vision and word finding difficulty that started at 10 PM the night prior and lasted for about an hour. She has no complaint currently, except for mild
headache.
She denies to N/V, fever/chills, CP/SOB, weakness/paresthesia.
Her CT head obtained in the ER noted a 2 cm low-density area in the left frontal white matter.
A/P:
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 Neuro symptoms have resolved
[place] likely cardioembolic per Neuro
CT head noted 2 cm low-density area in the left frontal white matter.
MRI brain confirmed 2.3 cm ACUTE ISCHEMIC INFARCT in the posteromedial LEFT TEMPORAL LOBE. 3 mm ACUTE ISCHEMIC INFARCT in the RIGHT ROSIE.
LDL high at 114, started Lipitor 40 mg HS
A1C 5.7%
Echo unrevealing, LVEF 55-60%. Negative bubble study x2
Cardiology will plan LU and ILR Saturday
Cont ASA /plavix
Neuro on board
# vit B12 deficiency
# vit D deficiency
B12 level and OH vit D level low
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
# distant history of R breast ca s/p mastectomy
# Diverticulosis, R breast ca s/p mastectomy
DVT ppx: Lovenox SQ
FC
DW RN
Anticipated Discharge: Within 24 hours
Subjective/Interval History
-
Date of Service: May 19, 2023
Objective Data
-
Labs:
Laboratory Results
05/19/23
06:36
WBC 5.0
Hgb 13.2
Hct 41.2
Plt Count 299 D
Sodium 138
Potassium 4.5
Chloride 107
Carbon Dioxide 23
BUN 15
Creatinine 0.9
Glucose 85
Calcium 9.6
Vital Signs:
Vital Signs
Temp Pulse Resp BP Pulse Ox
36.9 C 89 16 144/92 99
05/19/23 11:00 05/19/23 11:00 05/19/23 11:00 05/19/23 11:00 05/19/23 11:00
I&O
05/18/23 05/19/23 05/20/23
06:59 06:59 06:59
Intake Total 1500 / 1500 1140 / 1140
Balance 1500 / 1500 1140 / 1140
Review of Systems
-
All other systems: Reviewed and negative
Physical Exam
-
General: Well Developed, Well Nourished, No Apparent Distress, Comfortable and Conversant; Negative Respiratory Distress or Slurred Speech
HEENT: Normocephalic, Atraumatic, Nose Appears Normal and Ears Appear Normal; Negative Oxygen
Respiratory: Clear to Auscultation and Non Labored Respirations; Negative Accessory Resp Muscle Use
Cardiac: Regular Rhythm and S1/S2
GI: Soft, Nontender, Nondistended and Normal Bowel Sounds
Skin: Warm and Dry
Neuro: Awake, Alert, Oriented, AO x 3, No Motor Deficits, Nonfocal/Grossly Intact and No Sensory Deficits; Negative Slurred Speech or Facial Droop
Psych: Calm and Intact Judgement/Insight
Data Reviewed
-
CT Scan: Report Reviewed by me
MRI: Report Reviewed by me
Labs: Labs Reviewed by me
--- NOTE | 2023-05-19 13:40 | PTOTSP ---
Acute Care MS Aphasia Screening Test
Pt presents with grossly functional cognitive communication skills. Pt still endorses frequent word-finding difficulty and short term memory loss. Pt would benefit from an RX for an OP MANAGER BEHAVIORAL eval/tx upon discharge for a more comprehensive cognitive
linguistic assessment. Please provide RX upon d/c. No acute skilled MANAGER BEHAVIORAL services deemed warranted at this time. MANAGER BEHAVIORAL to sign off. Please re-consult if needed.
--- NOTE | 2023-05-19 14:29 | CM ---
Patient seen with family, reports no new concerns at this time. CM will continue to follow for discharge planning needs.
Plan; home no needs anticipated.
[2023-05-19 15:20] VITALS: BP 184/94
[2023-05-19] MEDS: LOVENOX 40 MG SC (17:04)
[2023-05-19] MEDS: LIPITOR 40 MG PO (17:04)
[2023-05-19 19:20] VITALS: BP 133/87
[2023-05-19 23:35] VITALS: BP 141/88
[2023-05-20 03:10] VITALS: BP 146/88
--- NOTE | 2023-05-20 08:20 | W.PN.CD ---
Today's Communication / Plan
-
LU today no obvious PFO or thrombus seen
We will sign off please call back with questions/concerns.
Impression / Plan
-
CVA
-DAPT (clopidogrel and ASA) for 21 days with ASA indefinitely per Neuro
-LDL 114, statin initiated (atorvastatin 40mg)
-TTE with bubble: normal
-monitor tele for A fib: none so far
-LU no obvious PFO or thrombus seen
Elevated blood pressure
-variable here: continue to trend
Prediabetes, HgbA1c 5.7%
B12 deficiency
Vitamin D deficiency
Physical Exam
Vital Signs/Labs
Vital Signs
Temp Pulse Resp BP Pulse Ox
98.0 F 78 16 146/88 97
05/20/23 03:10 05/20/23 03:10 05/20/23 03:10 05/20/23 03:10 05/20/23 03:10
05/19/23 06:36
05/19/23 06:36
Magnesium 2.0 mg/dl (1.6-2.3) 05/19/23 06:36
Triglycerides 93 mg/dl (10-149) 05/17/23 07:07
LDL Cholesterol, Calc 114 mg/dl 05/17/23 07:07
VLDL Cholesterol, Calc 18 mg/dl (0-30) 05/17/23 07:07
HDL Cholesterol 79 mg/dl 05/17/23 07:07
Physical Exam
Constitutional: No acute distress
Cardiovascular: Rhythm & rate is regular and Pedal edema is absent
Respiratory: Respiratory effort normal and Lungs clear to auscul.
GI: Soft
Neuro/Psych: AO x 3
Data Reviewed
-
Date of Service: May 20, 2023
EKG: Tracing Personally Visualized and interpreted (NSR, reviewed with team )
Echo: Tracing Personally Visualized and interpreted (Normal LV size and function no obvious PFO or thrombus, reviewed with hospitalist )
Labs: Labs Reviewed by me
--- NOTE | 2023-05-20 09:20 | W.PN.HOSP.TC ---
Today's Communication/Plan
-
Discharge today
Assessment / Plan
Assessment / Plan
HPI: 77-year-old female PMH Diverticulosis, R breast ca s/p mastectomy, p/w right eye blurry vision and word finding difficulty that started at 10 PM the night prior and lasted for about an hour. She has no complaint currently, except for mild
headache.
She denies to N/V, fever/chills, CP/SOB, weakness/paresthesia.
Her CT head obtained in the ER noted a 2 cm low-density area in the left frontal white matter.
A/P:
# Right sided blurry vision and word finding difficulty
# Acute left FOUNTAIN CLERK/basilar artery infarcts
Neuro symptoms have resolved . [place] likely cardioembolic per Neuro
MRI brain confirmed 2.3 cm ACUTE ISCHEMIC INFARCT in the posteromedial LEFT TEMPORAL LOBE. 3 mm ACUTE ISCHEMIC INFARCT in the RIGHT ROSIE.
LDL high at 114, started Lipitor 40 mg HS, A1C 5.7%
Echo unrevealing, LVEF 55-60%. Negative bubble study x2
Appreciate cardiology input, s/p ILR 05/19 , LU 05/19 no obvious PFO or thrombus seen
Cont ASA /plavix for total 21 days, then stop Plavix and continue aspirin 81 mg daily
Follow-up with PCP in 1 week, neurology, and cardiology
# vit B12 deficiency
# vit D deficiency
B12 level and OH vit D level low
Cont NEON SIGN SERVICER supplements
# distant history of R breast ca s/p mastectomy
# Diverticulosis, R breast ca s/p mastectomy
DVT ppx: Lovenox SQ
FC
Physical Exam
General: No acute distress
HEENT: Normocephalic, Atraumatic, EOMI, MMM
Respiratory: Clear to Auscultation bilaterally
Cardiac: Normal S1/S2, Regular Rate and Rhythm
GI: Soft, Nontender, Nondistended, Normal Bowel Sounds
Extremities: No Clubbing, Cyanosis, or Edema
Neuro: Nonfocal/Grossly Intact
Psych: Calm, Cooperative
Derm: No Visible lesions
Anticipated Discharge: Today
Subjective/Interval History
-
Date of Service: May 20, 2023
Visual changes resolved. Speech abnormalities resolved. No fever, no chest pain, no shortness of breath.
Objective Data
-
Vital Signs:
Vital Signs
Temp Pulse Resp BP Pulse Ox
98.0 F 78 16 146/88 97
05/20/23 03:10 05/20/23 03:10 05/20/23 03:10 05/20/23 03:10 05/20/23 03:10
I&O
05/19/23 05/20/23 05/21/23
06:59 06:59 06:59
Intake Total 1140 / 1140 1200 / 1200
Balance 1140 / 1140 1200 / 1200
[2023-05-20 12:20] VITALS: BP 154/85
[2023-05-20] MEDS: VITAMIN B-12 1000 MCG PO (12:25)
[2023-05-20] MEDS: PLAVIX 75 MG PO (12:25)
[2023-05-20] MEDS: VITAMIN D3 (cholecalciferol) 25 MCG PO (12:25)
[2023-05-20] MEDS: LOW STRENGTH ASPIRIN 81 MG PO (12:25)
--- NOTE | 2023-05-20 13:55 | PTCARENOTE ---
Patient returned to unit with loop recorder to L chest wall, dressing CDI.
--- NOTE | 2023-05-20 14:46 | W.DCSUMMARY ---
Addendum entered and electronically signed by Kurt Flynn MD 05/21/23 12:18:
Neurology suspects that patient's mild encephalopathy may be neurodegenerative in nature. Unable to fully determine at this time.
Original Note:
Discharge Summary
Discharge Data
Date of Admission: 05/16/23
Date of Discharge: 05/20/23
-
Pending Results: No
Hospital Course
Discharge diagnosis:
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
Right-sided blurry vision and word finding difficulty
Mild encephalopathy
Vitamin B12 deficiency
Vitamin D deficiency
Distant history of right-sided breast cancer status postmastectomy
Diverticulosis
Consults: Cardiology, neurology
Procedures:
05/20/2023�placement of implantable loop recorder
LU:
�Normal LV size and function with no regional wall motion abnormalities.
�LVEF is 55 to 60% by visual estimation.
�Normal RV size and function.
�No significant valve abnormality.
�No obvious PFO or thrombus seen.
�Compared to prior from May 17, 2023, no significant change.
Brain MRI:
1. � 2.3 cm ACUTE INFARCT in the POSTEROMEDIAL LEFT TEMPORAL LOBE containing cytotoxic edema.
2. � 3 mm ACUTE INFARCT in the RIGHT ROSIE containing cytotoxic edema.
3. � 1.0 cm asymmetric subcortical white matter lesion in the posterior left frontal lobe kong radiata which does not demonstrate enhancement to suggest high-grade malignancy. Diagnostic possibilities are (1) asymmetric white matter leukoaraiosis,
(2) demyelinating disease, or (3) a low-grade primary brain tumor.
4. � Small disc herniations in the upper cervical spine causing mild spinal cord compression.
Hospital course:
77-year-old female with a past medical history of right-sided breast cancer status postmastectomy, and diverticulosis who presented with right eye blurry vision and word finding difficulties. Patient was seen in conjunction with neurology. Brain
MRI confirms multiple infarcts, suspicious for cardioembolic in origin. Neurology recommends aspirin and Plavix for 21 days, followed by aspirin 81 mg daily. Patient's symptoms completely resolved during her hospitalization.
Patient's hemoglobin A1c was normal. Her LDL was high at 114. She was started on atorvastatin 40 mg at bedtime.
Patient had LU, which was negative for PFO or thrombus. She had an implantable loop recorder placed on 05/20/2023. She was seen by PT, and was deemed independent.
Patient was diagnosed with vitamin B12 and D deficiency prior to admission. She has been instructed to continue her previous vitamin supplements that were prescribed by her PCP.
Patient was noted to have mild encephalopathy. She needs to keep her previous appointment with neuropsychiatry for cognitive testing. She also needs to follow-up with her primary care doctor in 1 week, cardiology in 2-3 weeks, and neurology in 4-6
weeks.
Disposition: Home, self-care
Discharge planning: required 39 minutes
Discharge Plan
-
Patient Disposition: Home (Routine Discharge)
Discharge Diagnosis/Procedures: right sided blurry vision and word finding difficulty due to left temporal lobe stroke and right rosie stroke; vit B12 deficiency; vit D deficiency
Condition: Fair
Diet: As tolerated, Low Fat, Low Cholesterol and Low Sodium
Activity: As tolerated
Driving Restrictions: Not until seen by your Dr
Activity Restrictions/Additional Instructions:
Take Plavix/clopidogrel 75 mg daily for 3 weeks total through 06/05/2023, then stop.
Continue taking aspirin 81 mg daily, and Lipitor/atorvastatin 40 mg nightly to prevent your future risk of stroke.
Continue your previous vitamin B12 and vitamin D supplementation.
Neurology recommends outpatient neuropsychological evaluation.
Keep your previous appointment with the neurologist regarding your concern for dementia.
Neurology also recommends repeat brain MRI in 4-6 weeks.
Follow-up with cardiology in 2-3 weeks, neurology in 4-6 weeks, and your primary care doctor in 1 week.
Referrals:
Morgan Luu MD [Family Provider] - in less than 1 week
Maxine Wong CRNP [Specified Professional Personl] - in four to six weeks
Jarred Vogel MD [Active] - in two to three weeks
Prescriptions:
New
atorvastatin 40 mg Tablet
40 mg PO QPM Qty: 30 0RF
clopidogrel 75 mg Tablet
75 mg PO DAILY 16 Days Qty: 16 0RF
aspirin [Children's Aspirin] 81 mg Tablet,Chewable
81 mg PO DAILY Qty: 30 0RF
Continued
cyanocobalamin (vitamin B-12) 1,000 mcg Tablet
1,000 mcg PO DAILY
cholecalciferol (vitamin D3) [Vitamin D3] 25 mcg (1,000 unit) Tablet
25 mcg PO DAILY
Discontinued
potassium 99 mg Tablet
99 mg PO DAILY
Discharge Orders:
Discharge Patient (As Directed); Ordered 05/20/23
Ordered By: Kurt Flynn
--- NOTE | 2023-05-20 16:02 | ITS.CL.IMPLP ---
Radiator Core Tester - Implant Loop
Implant Loop
Procedure Report:
Primary Physician: Morgan Luu MD
Primary Acidizer Water Well: Jarred Vogel MD
Procedure Date: 05/20/2023
Procedure: Placement of a loop recorder.
History/Indication:
1. See office H&P for complete history.
2. Very pleasant 77-year-old female with a past medical history significant for prediabetes, B12/vitamin D deficiency, elevated blood pressure, recent CVA without clear etiology.; ILR insertion for rhythm monitoring/cryptogenic stroke
Method:
After informed consent was obtained, the patient was brought to the EP laboratory holding area in a fasting, non-sedated state. Peripheral access was established. The left chest was prepared and draped in a sterile fashion. A 'time out' was
called. Local anesthesia was injected in the subcutaneous tissue. The ILR was injected under the skin. Topical skin adhesive was applied. Following the procedure, the patient was taken to the recovery area in stable condition. No complications
were noted.
Device Data:
[employer]; Model# LINQII; Serial# [id number]
Conclusion:
Successful placement of a loop recorder.
Recommendations:
1. Follow-up will be arranged in the [facility] in 7-10 days for wound check.
2. Routine ILR care.
Shravan De Leon DO
Clinical Cardiac Molding Cutter
cc: Morgan Luu MD; Jarred Vogel MD
--- NOTE | 2023-05-21 08:35 | PN.CDI ---
CDI
- -
CDI:
Physician Documentation Request
Admit Date: 05/16/23 14:55
Dear Doctor Do,
Please review the following and provide your response in the progress notes.
Clinical Indicators:
- 05/19 DC Summary indicates encephalopathy without specificity 'Patient was noted to have mild encephalopathy'
- 05/17 Neurology note 'Mild encephalopathy(vascular, neurodegenerative?)'
- Patient admit for CVA
Please specify the known or suspected type of the documented encephalopathy.
Metabolic
Toxic
Toxic metabolic
Due to a specified condition (such as UTI, hyponatremia, CVA etc)
Other
Use of terms such as suspected, likely, concern for, or probable (associated with a specific diagnosis that is being evaluated, monitored, or treated as if it exists) are acceptable and can be coded in the inpatient setting, when documented at the
time of discharge.
Thank you,
Harpreet Varela RN
CDI Specialist
Please use your independent medical judgment in providing your response.
--- NOTE | 2023-05-21 08:37 | CM ---
(late entry for 05/20/23)
CM following re: d/c planning
Chart reviewed
Pt is medically stable for d/c
Pt had loop recorder placement and f/u with cards is recommended in the next few weeks post d/c
Pt to also follow up with neuro
No additional d/c needs to note
PLAN; d/c home no needs
== END 2023-05-20 16:37 | disposition home or self-care (01) | DRG 40 ==
LOC: 4 EAST ACU 14:55
PROVIDERS: Emergency Medicine; Internal Medicine Cardiovascular Disease; ADMITTING PHYSICIAN Internal Medicine; ATTENDING PHYSICIAN Family Medicine; CONSULT PHYSICIAN Internal Medicine; CONSULT PHYSICIAN Psychiatry & Neurology Neurology; EMERGENCY PHYSICIAN Emergency Medicine; FAMILY PHYSICIAN Family Medicine
PROC: B24BZZ4 Ultrasonography of Heart with Aorta, Transesophageal (ICD-10-PCS; 2023-05-20)
PROC: 0JH632Z Insertion of Monitoring Device into Chest Subcutaneous Tissue and Fascia, Percutaneous Approach (ICD-10-PCS; 2023-05-20)
DX: I63.29 Cerebral infarction due to unspecified occlusion or stenosis of other precerebral arteries (principal); G93.6 Cerebral edema; G93.40 Encephalopathy, unspecified; K57.92 Diverticulitis of intestine, part unspecified, without perforation or abscess without bleeding; M50.021 Cervical disc disorder at C4-C5 level with myelopathy; M50.01 Cervical disc disorder with myelopathy, high cervical region; H53.8 Other visual disturbances; R51.9 Headache, unspecified; M19.90 Unspecified osteoarthritis, unspecified site; R73.03 Prediabetes; E53.8 Deficiency of other specified B group vitamins; E55.9 Vitamin D deficiency, unspecified; Z87.19 Personal history of other diseases of the digestive system; Z90.13 Acquired absence of bilateral breasts and nipples; Z85.3 Personal history of malignant neoplasm of breast; Z96.651 Presence of right artificial knee joint; Z96.643 Presence of artificial hip joint, bilateral
CPT/HCPCS: 33285; 70450; 70551; 70553; 80048; 80053; 80061; 82306; 82607; 83036; 83735; 84484; 85025; 85027; 92523; 92610; 93005; 93306; 93312; 93320; 93325; 97161; 97166; 99285; A9575; C1764

== ENCOUNTER → 2023-07-24 11:02 | Outpatient (REF) | payer MEDICARE, OTHER, SELFPAY | LOC: PAVMRI 11:02 | PROVIDERS: ATTENDING PHYSICIAN Nurse Practitioner Adult Health; FAMILY PHYSICIAN Family Medicine | DX: I63.9 Cerebral infarction, unspecified (principal); R41.3 Other amnesia; R90.89 Other abnormal findings on diagnostic imaging of central nervous system | CPT/HCPCS: 70553; A9575 ==

== ENCOUNTER → 2023-08-16 07:45 | Outpatient (REF) | payer MEDICARE, OTHER, SELFPAY | LOC: RAD 07:45 | PROVIDERS: ATTENDING PHYSICIAN Nurse Practitioner Adult Health; FAMILY PHYSICIAN Family Medicine | DX: I63.9 Cerebral infarction, unspecified (principal); I63.033 Cerebral infarction due to thrombosis of bilateral carotid arteries | CPT/HCPCS: 93880 ==

== ENCOUNTER → 2023-10-03 06:13 | Day surgery (SDC) | payer MEDICARE, OTHER, SELFPAY | LOC: GI 06:13 | PROVIDERS: ATTENDING PHYSICIAN Internal Medicine; FAMILY PHYSICIAN Family Medicine | DX: Z12.11 Encounter for screening for malignant neoplasm of colon (principal); K57.30 Diverticulosis of large intestine without perforation or abscess without bleeding; D12.2 Benign neoplasm of ascending colon; D12.4 Benign neoplasm of descending colon; D12.8 Benign neoplasm of rectum; Z86.010 Personal history of colon polyps | CPT/HCPCS: 45385; 45380; 88305 ==

== ENCOUNTER → 2024-09-09 09:32 | Outpatient (REF) | payer MEDICARE, OTHER, SELFPAY | LOC: RAD 09:32 | PROVIDERS: ATTENDING PHYSICIAN Family Medicine | DX: Z13.820 Encounter for screening for osteoporosis (principal); M81.0 Age-related osteoporosis without current pathological fracture | CPT/HCPCS: 77080 ==

== ENCOUNTER → 2024-09-30 08:52 | Outpatient (REF) | payer MEDICARE, OTHER, SELFPAY | LOC: MRI 3T 08:52 | PROVIDERS: ATTENDING PHYSICIAN Nurse Practitioner Adult Health; FAMILY PHYSICIAN Family Medicine | DX: I63.9 Cerebral infarction, unspecified (principal); R41.3 Other amnesia; R90.89 Other abnormal findings on diagnostic imaging of central nervous system | CPT/HCPCS: 70553; A9575 ==